=== PATIENT | female | born 1980 | race African-American/Black ===

== ENCOUNTER 2020-06-21 17:20 | Observation (INO) ==
[2020-06-21 19:38] LABS: Basophils # 0.1 10*3/uL (0.0-0.2); Basophils % 0.8 % (0.0-0.8); Hematocrit 42.7 VOL% (35.7-47.0); Hemoglobin 14.6 GM/DL (12.0-16.0); Immature Granulocytes % 0.7 %; Immature Granulocytes Absolute 0.11 #; Lymphocytes # 1.8 10*3/uL (1.4-4.0); Lymphocytes % 11.5 % (21.3-54.2); Mean Corpuscular HGB Conc 34.2 GM/DL (32-36); Mean Platelet Volume 9.7 FL (9.6-12.0); Monocytes % 4.9 % (1.7-12.7); Neutrophils % 82.1 % (38.7-73.9); Platelet Count 503 T/CUMM (130-400); Red Blood Count 5.34 MC/CUMM (3.8-5.5); Red Cell Distribution Width 13.8 % (9.3-17.3); White Blood Count 15.6 T/CUMM (4-12)
[2020-06-21 19:46] LABS: Bilirubin,Urine Small mg/dL (Negative); Blood, Urine Negative (Negative); Glucose,Urine (UA) Negative (Negative); Ketones,Urine 80 mg/dL (Negative); Mucus,Urine Many /LPF (Occasional); Nitrite,Urine Negative (Negative); Protein,Urine 100 MG/DL; RBC,Urine 3 /HPF (0-4); Squamous Epithelial Cell,Urine Many /HPF (0-10); Urine Appearance CLOUDY (Clear); Urine Color Amber (Yellow); Urine Specific Gravity 1.031 (1.001-1.035); WBC,Urine 4 /HPF (0-6)
[2020-06-21] MEDS ORDERED: SODIUM CHLORIDE 0.9% 500 ML IV STA (19:46)
[2020-06-21 20:01] LABS: Bilirubin,Total 0.6 MG/DL (0.2-1.0); Calcium 9.6 MG/DL (8.5-10.1); Osmolality,Calculated 269.1 MOS/KG (273-304); Potassium 2.8 MMOL/L (3.5-5.1); Total Protein 9.2 G/DL (6.4-8.3)
[2020-06-21] MEDS ORDERED: ONDANSETRON 4 MG/2 ML VIAL ONE (20:03)
[2020-06-21] MEDS ORDERED: POTASSIUM CHLORIDE 20 MEQ TABLET PO STA (20:25)
[2020-06-21] MEDS ORDERED: ONDANSETRON 4 MG/2 ML VIAL IV STA (20:29)
[2020-06-21] MEDS ORDERED: GLUCAGON 1 MG VIAL IM PRN (22:49)
[2020-06-21] MEDS ORDERED: DEXTROSE 50% 25 GM/50 ML VIAL IV PRN (22:49)
[2020-06-22] MEDS: SODIUM CHLORIDE 0.9% 1,000 ML IV SCH ×2 (00:05→10:05)
[2020-06-22] MEDS: PROMETHAZINE INJ 25 MG in SODIUM CHLORIDE 0.9% 50 ML IV PRN (00:05)
[2020-06-22] MEDS ORDERED: MAGNESIUM SULF RIDER 4 GM in PREMIX 1 EACH IV PRN (00:31)
[2020-06-22] MEDS ORDERED: MAGNESIUM SULF RIDER 2 GM in PREMIX 1 EACH IV PRN (00:31)
[2020-06-22] MEDS: ENOXAPARIN 40 MG/0.4 ML SYRINGE SUBCUT SCH ×2 (00:38→22:21)
[2020-06-22] MEDS: hydrALAZINE 20 MG/1 ML VIAL IV PRN ×4 (00:38→22:24)
[2020-06-22] MEDS ORDERED: PANTOPRAZOLE 40 MG VIAL IV ONE (00:45)
[2020-06-22] MEDS: POTASSIUM CHLORIDE RIDER 10 MEQ in PREMIX 1 EACH IV PRN ×12 (01:21→23:48)
[2020-06-22 06:30] LABS: Basophils # 0.1 10*3/uL (0.0-0.2); Basophils % 0.5 % (0.0-0.8); Hematocrit 40.7 VOL% (35.7-47.0); Hemoglobin 13.9 GM/DL (12.0-16.0); Immature Granulocytes % 0.7 %; Immature Granulocytes Absolute 0.13 #; Lymphocytes # 2.8 10*3/uL (1.4-4.0); Lymphocytes % 15.1 % (21.3-54.2); Mean Corpuscular HGB Conc 34.2 GM/DL (32-36); Mean Corpuscular Volume 79.8 FL (87-102); Mean Platelet Volume 10.4 FL (9.6-12.0); Monocytes % 5.9 % (1.7-12.7); Neutrophils % 77.8 % (38.7-73.9); Platelet Count 479 T/CUMM (130-400); Red Cell Distribution Width 13.7 % (9.3-17.3); White Blood Count 18.3 T/CUMM (4-12)
[2020-06-22 07:19] LABS: Alanine Aminotransferase < 9 U/L (13-56); Albumin 3.7 G/DL (3.4-5.0); Alkaline Phosphatase 107 U/L (45-117); Aspartate Amino Transferase 11 U/L (0-37); Blood Urea Nitrogen 6 MG/DL (7-18); Calcium 9.1 MG/DL (8.5-10.1); Carbon Dioxide 24 MMOL/L (21-32); Estimated Glom Filtration Rate 127 ML/MIN; Glucose 97 MG/DL (74-106); Osmolality,Calculated 267.1 MOS/KG (273-304); Sodium 135 MMOL/L (136-145); Total Protein 8.6 G/DL (6.4-8.3)
[2020-06-22 07:23] LABS: Potassium 2.5 MMOL/L (3.5-5.1)
[2020-06-22] MEDS ORDERED: lisinopriL 20 MG TABLET PO SCH (09:00)
[2020-06-22] MEDS: SODIUM CHLOR 0.9% KCL 40 MEQ 40 MEQ/1,000 ML BAG IV SCH ×2 (10:02→19:39)
[2020-06-22] MEDS: PANTOPRAZOLE 40 MG VIAL IV SCH (10:03)
[2020-06-22] MEDS: ONDANSETRON 4 MG/2 ML VIAL IV PRN ×2 (10:03→17:22)
[2020-06-22] MEDS ORDERED: MELATONIN 3 MG TABLET PO PRN (11:52)
[2020-06-22] MEDS: ACETAMINOPHEN 325 MG TABLET PO PRN ×2 (12:21→22:14)
[2020-06-22] MEDS: amLODIPine 10 MG TABLET PO SCH (14:02)
[2020-06-22] MEDS: ZALEPLON 5 MG CAPSULE PO PRN (22:45)
[2020-06-23] MEDS: PROMETHAZINE INJ 25 MG in SODIUM CHLORIDE 0.9% 50 ML IV PRN ×3 (00:46→20:47)
[2020-06-23] MEDS: POTASSIUM CHLORIDE RIDER 10 MEQ in PREMIX 1 EACH IV PRN ×2 (01:26→02:47)
[2020-06-23] MEDS: SODIUM CHLOR 0.9% KCL 40 MEQ 40 MEQ/1,000 ML BAG IV SCH ×3 (07:22→20:42)
[2020-06-23 07:29] LABS: Albumin 3.3 G/DL (3.4-5.0); Bilirubin,Total 1.4 MG/DL (0.2-1.0); Calcium 8.9 MG/DL (8.5-10.1); Osmolality,Calculated 261.5 MOS/KG (273-304); Potassium 3.1 MMOL/L (3.5-5.1); Total Protein 7.4 G/DL (6.4-8.3)
[2020-06-23 07:35] LABS: Basophils # 0.1 10*3/uL (0.0-0.2); Basophils % 0.7 % (0.0-0.8); Eosinophils # 0.1 10*3/uL (0.0-0.87); Eosinophils % 0.4 % (0.00-10.9); Hematocrit 37.9 VOL% (35.7-47.0); Immature Granulocytes % 1.4 %; Lymphocytes # 2.3 10*3/uL (1.4-4.0); Lymphocytes % 16.5 % (21.3-54.2); Mean Corpuscular HGB Conc 34.3 GM/DL (32-36); Mean Corpuscular Volume 79.8 FL (87-102); Mean Platelet Volume 10.2 FL (9.6-12.0); Platelet Count 433 T/CUMM (130-400); Red Blood Count 4.75 MC/CUMM (3.8-5.5); Red Cell Distribution Width 13.9 % (9.3-17.3)
[2020-06-23] MEDS: POTASSIUM CHLORIDE 20 MEQ TABLET PO SCH ×2 (08:17→20:44)
[2020-06-23] MEDS: carvediloL 12.5 MG TABLET PO SCH ×2 (08:17→20:31)
[2020-06-23] MEDS: lisinopriL 20 MG TABLET PO SCH (08:17)
[2020-06-23] MEDS: amLODIPine 10 MG TABLET PO SCH (08:17)
[2020-06-23] MEDS: PANTOPRAZOLE 40 MG VIAL IV SCH (08:18)
[2020-06-23 09:21] LABS: Calcium 8.7 MG/DL (8.5-10.1); Osmolality,Calculated 268.1 MOS/KG (273-304); Potassium 3.1 MMOL/L (3.5-5.1)
[2020-06-23] MEDS: ONDANSETRON 4 MG/2 ML VIAL IV PRN ×2 (10:13→16:19)
[2020-06-23] MEDS: MELATONIN 3 MG TABLET PO PRN (20:31)
[2020-06-23] MEDS: ZALEPLON 5 MG CAPSULE PO PRN (20:31)
[2020-06-23] MEDS: hydrALAZINE 20 MG/1 ML VIAL IV PRN (20:33)
[2020-06-24 04:39] LABS: Basophils # 0.1 10*3/uL (0.0-0.2); Basophils % 0.8 % (0.0-0.8); Eosinophils # 0.2 10*3/uL (0.0-0.87); Eosinophils % 1.4 % (0.00-10.9); Hematocrit 37.6 VOL% (35.7-47.0); Hemoglobin 13.1 GM/DL (12.0-16.0); Immature Granulocytes % 1.1 %; Immature Granulocytes Absolute 0.14 #; Lymphocytes # 1.9 10*3/uL (1.4-4.0); Lymphocytes % 15.8 % (21.3-54.2); Mean Corpuscular HGB Conc 34.8 GM/DL (32-36); Mean Corpuscular Volume 78.2 FL (87-102); Mean Platelet Volume 10.3 FL (9.6-12.0); Monocytes % 8.9 % (1.7-12.7); Platelet Count 396 T/CUMM (130-400); Red Blood Count 4.81 MC/CUMM (3.8-5.5); White Blood Count 12.3 T/CUMM (4-12)
[2020-06-24 05:05] LABS: Calcium 8.6 MG/DL (8.5-10.1); Osmolality,Calculated 266.1 MOS/KG (273-304); Potassium 3.9 MMOL/L (3.5-5.1)
[2020-06-24] MEDS: PROMETHAZINE INJ 25 MG in SODIUM CHLORIDE 0.9% 50 ML IV PRN ×3 (05:33→22:44)
[2020-06-24] MEDS: SODIUM CHLOR 0.9% KCL 40 MEQ 40 MEQ/1,000 ML BAG IV SCH ×3 (05:36→22:45)
[2020-06-24] MEDS: ENOXAPARIN 40 MG/0.4 ML SYRINGE SUBCUT SCH (05:38)
[2020-06-24] MEDS: PANTOPRAZOLE 40 MG VIAL IV SCH (10:16)
[2020-06-24] MEDS: ONDANSETRON 4 MG/2 ML VIAL IV PRN ×2 (10:18→17:56)
[2020-06-24] MEDS: POTASSIUM CHLORIDE 20 MEQ TABLET PO SCH ×2 (10:47→21:10)
[2020-06-24] MEDS: carvediloL 12.5 MG TABLET PO SCH ×2 (10:47→21:09)
[2020-06-24] MEDS: lisinopriL 20 MG TABLET PO SCH (10:48)
[2020-06-24] MEDS: amLODIPine 10 MG TABLET PO SCH (10:48)
[2020-06-24] MEDS: MELATONIN 3 MG TABLET PO PRN (21:09)
[2020-06-24] MEDS: ZALEPLON 5 MG CAPSULE PO PRN (21:09)
[2020-06-24] MEDS: hydrALAZINE 20 MG/1 ML VIAL IV PRN (21:10)
[2020-06-25 05:26] LABS: Basophils # 0.1 10*3/uL (0.0-0.2); Basophils % 0.7 % (0.0-0.8); Eosinophils # 0.1 10*3/uL (0.0-0.87); Hematocrit 39.7 VOL% (35.7-47.0); Hemoglobin 13.4 GM/DL (12.0-16.0); Immature Granulocytes % 1.1 %; Immature Granulocytes Absolute 0.13 #; Lymphocytes # 1.9 10*3/uL (1.4-4.0); Lymphocytes % 16.6 % (21.3-54.2); Mean Corpuscular HGB Conc 33.8 GM/DL (32-36); Mean Corpuscular Volume 80.5 FL (87-102); Mean Platelet Volume 10.3 FL (9.6-12.0); Monocytes % 9.6 % (1.7-12.7); Platelet Count 405 T/CUMM (130-400); Red Blood Count 4.93 MC/CUMM (3.8-5.5); Red Cell Distribution Width 13.9 % (9.3-17.3); White Blood Count 11.5 T/CUMM (4-12)
[2020-06-25] MEDS: PROMETHAZINE INJ 25 MG in SODIUM CHLORIDE 0.9% 50 ML IV PRN (05:47)
[2020-06-25] MEDS: ENOXAPARIN 40 MG/0.4 ML SYRINGE SUBCUT SCH (05:48)
[2020-06-25 05:54] LABS: Calcium 8.8 MG/DL (8.5-10.1); Osmolality,Calculated 268.1 MOS/KG (273-304); Potassium 3.9 MMOL/L (3.5-5.1)
[2020-06-25] MEDS: POTASSIUM CHLORIDE RIDER 10 MEQ in PREMIX 1 EACH IV PRN (06:47)
[2020-06-25] MEDS: SODIUM CHLOR 0.9% KCL 40 MEQ 40 MEQ/1,000 ML BAG IV SCH (06:50)
[2020-06-25] MEDS: carvediloL 12.5 MG TABLET PO SCH (09:48)
[2020-06-25] MEDS: lisinopriL 20 MG TABLET PO SCH (09:48)
[2020-06-25] MEDS: amLODIPine 10 MG TABLET PO SCH (09:48)
[2020-06-25] MEDS: PANTOPRAZOLE 40 MG VIAL IV SCH (09:51)
[2020-06-25] MEDS: ONDANSETRON 4 MG/2 ML VIAL IV PRN (09:59)
[2020-06-25] MEDS: POTASSIUM CHLORIDE 20 MEQ TABLET PO SCH (10:17)
[2020-06-25 12:28] VITALS: BP 133/84
== END 2020-06-25 14:20 | disposition home or self-care (01) ==
LOC: N.3E 17:20 → N.ED 17:20 → SUATTDRO 21:02 → N.3E 21:37
PROVIDERS: ADMIT Internal Medicine; ATTEND Emergency Medicine

== ENCOUNTER 2021-05-29 16:41 | Inpatient (IN) ==
[2021-05-29] MEDS ORDERED: ONDANSETRON 4 MG/2 ML VIAL IV STA (18:08)
[2021-05-29] MEDS ORDERED: SODIUM CHLORIDE 0.9% 1,000 ML IV STA ×2 (18:08→19:31)
[2021-05-29 19:03] LABS: Basophils % 0.5 % (0.0-0.8); Eosinophils % 0.1 % (0.00-10.9); Hematocrit 40.7 VOL% (35.7-47.0); Hemoglobin 13.6 GM/DL (12.0-16.0); Immature Granulocytes % 1.5 %; Immature Granulocytes Absolute 0.13 #; Lymphocytes # 2.1 10*3/uL (1.4-4.0); Mean Corpuscular HGB Conc 33.4 GM/DL (32-36); Mean Corpuscular Volume 77.7 FL (87-102); Mean Platelet Volume 8.8 FL (9.6-12.0); Monocytes % 5.7 % (1.7-12.7); Neutrophils % 68.2 % (38.7-73.9); Platelet Count 564 T/CUMM (130-400); Red Blood Count 5.24 MC/CUMM (3.8-5.5); Red Cell Distribution Width 14.6 % (9.3-17.3); White Blood Count 8.9 T/CUMM (4-12)
[2021-05-29 19:26] LABS: Alanine Aminotransferase 22 U/L (13-56); Albumin 3.8 G/DL (3.4-5.0); Alkaline Phosphatase 114 U/L (45-117); Aspartate Amino Transferase 10 U/L (0-37); Blood Urea Nitrogen 79 MG/DL (7-18); Calcium 10.7 MG/DL (8.5-10.1); Carbon Dioxide 29 MMOL/L (21-32); Estimated Glom Filtration Rate 11 ML/MIN; Glucose 146 MG/DL (74-106); Osmolality,Calculated 277.5 MOS/KG (273-304); Potassium 2.9 MMOL/L (3.5-5.1); Sodium 125 MMOL/L (136-145); Total Protein 10.2 G/DL (6.4-8.2)
[2021-05-29 19:27] LABS: Bilirubin,Urine Negative (Negative); Blood, Urine Negative (Negative); Glucose,Urine (UA) 50 mg/dL (Negative); Ketones,Urine Negative (Negative); Mucus,Urine Occasional /LPF (Occasional); Nitrite,Urine Negative (Negative); Protein,Urine 30 MG/DL; RBC,Urine 3 /HPF (0-4); Squamous Epithelial Cell,Urine Few /HPF (0-10); Urine Appearance CLOUDY (Clear); Urine Color Yellow (Yellow); Urine Specific Gravity 1.013 (1.001-1.035); Urine Urobilinogen < 2.0 EU/DL (<2.0)
[2021-05-29] MEDS ORDERED: POTASSIUM CHLORIDE 20 MEQ TABLET PO STA (19:31)
[2021-05-29] MEDS ORDERED: POTASSIUM BICARB EFFERVESCENT 20 MEQ TAB.EFF PO ONE (21:01)
[2021-05-29] MEDS ORDERED: MORPHINE 2 MG/1 ML SYRINGE IV STA ×2 (21:24→23:24)
[2021-05-29] MEDS ORDERED: ONDANSETRON 4 MG/2 ML VIAL IV ONE (21:24)
[2021-05-29] MEDS ORDERED: VANCOMYCIN INJ 1,000 MG in SODIUM CHLORIDE 0.9% 250 ML IV ONE (22:00)
[2021-05-29] MEDS ORDERED: GLUCAGON 1 MG VIAL IM PRN (23:24)
[2021-05-29] MEDS ORDERED: ACETAMINOPHEN 325 MG TABLET PO PRN (23:24)
[2021-05-29] MEDS ORDERED: DOCUSATE SODIUM 100 MG CAPSULE PO PRN (23:24)
[2021-05-29] MEDS ORDERED: ZALEPLON 5 MG CAPSULE PO PRN (23:24)
[2021-05-29] MEDS ORDERED: hydrALAZINE 20 MG/1 ML VIAL IV PRN (23:24)
[2021-05-29] MEDS ORDERED: NICOTINE 21 MG/24 HR PATCH TRANSDERM PRN (23:24)
[2021-05-29] MEDS ORDERED: guaiFENesin/DM ER 600-30 MG TABLET PO PRN (23:24)
[2021-05-29] MEDS ORDERED: diphenhydrAMINE CAP 25 MG CAPSULE PO PRN (23:24)
[2021-05-29] MEDS ORDERED: DEXTROSE 10% 250 ML BAG IV PRN (23:24)
[2021-05-30] MEDS ORDERED: POTASSIUM CHLORIDE RIDER 10 MEQ/100 ML PREMIX IV PRN (00:25)
[2021-05-30] MEDS: SODIUM CHLOR 0.9% KCL 40 MEQ 40 MEQ/1,000 ML BAG IV SCH ×3 (02:00→20:00)
[2021-05-30] MEDS: PIPERACILLIN/TAZOBACTAM 3,375 MG in SODIUM CHLORIDE 0.9% 100 ML IV SCH ×2 (02:15→16:00)
[2021-05-30] MEDS: ONDANSETRON 4 MG/2 ML VIAL IV PRN ×3 (02:49→22:37)
[2021-05-30 05:46] LABS: Basophils % 0.5 % (0.0-0.8); Eosinophils # 0.1 10*3/uL (0.0-0.87); Eosinophils % 0.6 % (0.00-10.9); Hematocrit 30.1 VOL% (35.7-47.0); Hemoglobin 10.2 GM/DL (12.0-16.0); Immature Granulocytes % 1.3 %; Immature Granulocytes Absolute 0.11 #; Lymphocytes # 2.7 10*3/uL (1.4-4.0); Lymphocytes % 30.3 % (21.3-54.2); Mean Corpuscular HGB Conc 33.9 GM/DL (32-36); Mean Corpuscular Volume 78.8 FL (87-102); Mean Platelet Volume 9.1 FL (9.6-12.0); Monocytes % 8.9 % (1.7-12.7); Neutrophils % 58.4 % (38.7-73.9); Platelet Count 494 T/CUMM (130-400); Red Blood Count 3.82 MC/CUMM (3.8-5.5); Red Cell Distribution Width 14.6 % (9.3-17.3); White Blood Count 8.8 T/CUMM (4-12)
[2021-05-30] MEDS ORDERED: VANCOMYCIN INJ 1,000 MG in SODIUM CHLORIDE 0.9% 250 ML IV PRN (06:00)
[2021-05-30 06:08] LABS: Albumin 2.9 G/DL (3.4-5.0); Bilirubin,Total 1.2 MG/DL (0.20-1.00); Osmolality,Calculated 290.4 MOS/KG (273-304); Potassium 3.4 MMOL/L (3.5-5.1); Total Protein 7.6 G/DL (6.4-8.2)
[2021-05-30] MEDS: MORPHINE 2 MG/1 ML SYRINGE IV PRN (08:22)
[2021-05-30] MEDS: HEPARIN 5,000 UNIT/1 ML VIAL SUBCUT SCH ×2 (12:54→21:19)
[2021-05-30] MEDS: PANTOPRAZOLE 40 MG TABLET PO SCH (12:55)
[2021-05-30] MEDS ORDERED: PROMETHAZINE 25 MG TABLET PO PRN (15:35)
[2021-05-30] MEDS ORDERED: oxyCODONE/ACETAMINOPHEN 5-325 MG TABLET PO PRN (15:39)
[2021-05-30] MEDS: ALPRAZolam 0.5 MG TABLET PO PRN (16:05)
[2021-05-30] MEDS ORDERED: ZALEPLON 5 MG CAPSULE PO SCH (21:00)
[2021-05-30] MEDS: prednisoLONE ACETATE 1% OPH SUSP 5 ML BOTTLE BOTH EYES SCH (22:32)
[2021-05-31] MEDS: SODIUM CHLOR 0.9% KCL 40 MEQ 40 MEQ/1,000 ML BAG IV SCH (04:05)
[2021-05-31] MEDS: PIPERACILLIN/TAZOBACTAM 3,375 MG in SODIUM CHLORIDE 0.9% 100 ML IV SCH (04:07)
[2021-05-31 06:55] LABS: Basophils % 0.6 % (0.0-0.8); Eosinophils % 0.3 % (0.00-10.9); Hematocrit 28.1 VOL% (35.7-47.0); Hemoglobin 9.2 GM/DL (12.0-16.0); Lymphocytes # 2.4 10*3/uL (1.4-4.0); Lymphocytes % 38.4 % (21.3-54.2); Mean Corpuscular HGB Conc 32.7 GM/DL (32-36); Mean Corpuscular Volume 80.5 FL (87-102); Mean Platelet Volume 9.6 FL (9.6-12.0); Monocytes % 11.8 % (1.7-12.7); Neutrophils % 47.9 % (38.7-73.9); Platelet Count 417 T/CUMM (130-400); Red Blood Count 3.49 MC/CUMM (3.8-5.5); Red Cell Distribution Width 14.7 % (9.3-17.3); White Blood Count 6.3 T/CUMM (4-12)
[2021-05-31 07:29] LABS: Calcium 8.6 MG/DL (8.5-10.1); Osmolality,Calculated 287.5 MOS/KG (273-304); Potassium 4.5 MMOL/L (3.5-5.1)
[2021-05-31 07:55] LABS: Albumin 2.5 G/DL (3.4-5.0); Bilirubin,Total 1.3 MG/DL (0.20-1.00); Calcium 8.4 MG/DL (8.5-10.1); Osmolality,Calculated 289.4 MOS/KG (273-304); Potassium 4.6 MMOL/L (3.5-5.1); Total Protein 6.9 G/DL (6.4-8.2)
[2021-05-31] MEDS: PANTOPRAZOLE 40 MG TABLET PO SCH (09:00)
[2021-05-31] MEDS: prednisoLONE ACETATE 1% OPH SUSP 5 ML BOTTLE BOTH EYES SCH (09:00)
[2021-05-31] MEDS: HEPARIN 5,000 UNIT/1 ML VIAL SUBCUT SCH (09:00)
[2021-05-31] MEDS ORDERED: VANCOMYCIN INJ 1,000 MG in SODIUM CHLORIDE 0.9% 250 ML IV ONE (09:00)
[2021-05-31] MEDS: ALPRAZolam 0.5 MG TABLET PO PRN (09:00)
[2021-05-31 11:41] VITALS: BP 100/62
[2021-05-31] MEDS: MORPHINE 2 MG/1 ML SYRINGE IV PRN (11:56)
[2021-05-31] MEDS: ONDANSETRON 4 MG/2 ML VIAL IV PRN (11:56)
[2021-05-31] MEDS ORDERED: LACTATED RINGERS 1,000 ML IV SCH (13:00)
== END 2021-05-31 15:05 | disposition home or self-care (01) | DRG 683 ==
LOC: N.ED 16:41 → N.EDINP 23:24 → N.OB 05-30 16:40
PROVIDERS: ADMIT Hospitalist; ATTEND Hospitalist

== ENCOUNTER 2021-06-01 19:14 | Observation (INO) ==
[2021-06-01] MEDS ORDERED: PANTOPRAZOLE 40 MG VIAL IV STA (20:22)
[2021-06-01] MEDS ORDERED: SODIUM CHLORIDE 0.9% 1,000 ML IV STA (20:22)
[2021-06-01] MEDS ORDERED: PROMETHAZINE 25 MG/1 ML VIAL IM STA (20:22)
[2021-06-01 21:36] LABS: Bilirubin,Urine Negative (Negative); Blood, Urine Negative (Negative); Glucose,Urine (UA) Negative (Negative); Ketones,Urine Negative (Negative); Nitrite,Urine Negative (Negative); Protein,Urine 30 MG/DL; RBC,Urine 3 /HPF (0-4); Squamous Epithelial Cell,Urine Occasional /HPF (0-10); Urine Appearance CLEAR (Clear); Urine Color Yellow (Yellow); Urine Specific Gravity 1.012 (1.001-1.035); Urine Urobilinogen < 2.0 EU/DL (<2.0)
[2021-06-01 22:03] LABS: Basophils # 0.1 10*3/uL (0.0-0.2); Basophils % 0.5 % (0.0-0.8); Eosinophils % 0.4 % (0.00-10.9); Hematocrit 26.4 VOL% (35.7-47.0); Hemoglobin 8.7 GM/DL (12.0-16.0); Immature Granulocytes % 0.5 %; Immature Granulocytes Absolute 0.05 #; Lymphocytes # 2.8 10*3/uL (1.4-4.0); Lymphocytes % 28.4 % (21.3-54.2); Mean Corpuscular Volume 79.3 FL (87-102); Mean Platelet Volume 8.6 FL (9.6-12.0); Monocytes % 7.1 % (1.7-12.7); Neutrophils % 63.1 % (38.7-73.9); Platelet Count 354 T/CUMM (130-400); Red Blood Count 3.33 MC/CUMM (3.8-5.5); Red Cell Distribution Width 14.7 % (9.3-17.3); White Blood Count 9.9 T/CUMM (4-12)
[2021-06-01] MEDS ORDERED: SODIUM CHLORIDE 0.9% 500 ML IV ONE (22:39)
[2021-06-01 23:02] LABS: Alanine Aminotransferase 22 U/L (13-56); Albumin 2.6 G/DL (3.4-5.0); Alkaline Phosphatase 77 U/L (45-117); Amylase 116 U/L (25-115); Aspartate Amino Transferase 16 U/L (0-37); Blood Urea Nitrogen 14 MG/DL (7-18); Carbon Dioxide 24 MMOL/L (21-32); Estimated Glom Filtration Rate 59 ML/MIN; Glucose 94 MG/DL (74-106); Osmolality,Calculated 279.4 MOS/KG (273-304); Potassium 3.8 MMOL/L (3.5-5.1); Sodium 140 MMOL/L (136-145); Total Protein 7.1 G/DL (6.4-8.2)
[2021-06-01] MEDS ORDERED: MAGNESIUM SULF RIDER 2 GM/50 ML PREMIX IV STA (23:15)
[2021-06-01] MEDS ORDERED: MAGNESIUM SULF RIDER 4 GM/100 ML PREMIX IV PRN (23:36)
[2021-06-01] MEDS ORDERED: POTASSIUM CHLORIDE RIDER 10 MEQ/100 ML PREMIX IV PRN (23:36)
[2021-06-01] MEDS ORDERED: MAGNESIUM SULF RIDER 2 GM/50 ML PREMIX IV PRN (23:36)
[2021-06-02] MEDS ORDERED: hydrALAZINE 20 MG/1 ML VIAL IV PRN
[2021-06-02] MEDS ORDERED: DEXT 5% NACL 0.9% KCL 20 MEQ 20 MEQ/1,000 ML BAG IV SCH
[2021-06-02] MEDS ORDERED: ZALEPLON 5 MG CAPSULE PO PRN
[2021-06-02] MEDS ORDERED: PROMETHAZINE 25 MG/1 ML VIAL IM PRN
[2021-06-02] MEDS ORDERED: NICOTINE 21 MG/24 HR PATCH TRANSDERM PRN
[2021-06-02] MEDS ORDERED: diphenhydrAMINE CAP 25 MG CAPSULE PO PRN
[2021-06-02] MEDS ORDERED: ONDANSETRON 4 MG/2 ML VIAL IV PRN
[2021-06-02] MEDS ORDERED: ACETAMINOPHEN 325 MG TABLET PO PRN
[2021-06-02] MEDS ORDERED: guaiFENesin/DM ER 600-30 MG TABLET PO PRN
[2021-06-02] MEDS ORDERED: BISACODYL 5 MG TABLET PO PRN
[2021-06-02] MEDS ORDERED: DEXTROSE 10% 250 ML BAG IV PRN
[2021-06-02] MEDS ORDERED: GLUCAGON 1 MG VIAL IM PRN
[2021-06-02 05:53] LABS: Basophils # 0.1 10*3/uL (0.0-0.2); Basophils % 0.6 % (0.0-0.8); Eosinophils # 0.1 10*3/uL (0.0-0.87); Eosinophils % 0.7 % (0.00-10.9); Hematocrit 29.1 VOL% (35.7-47.0); Hemoglobin 9.7 GM/DL (12.0-16.0); Immature Granulocytes % 0.4 %; Immature Granulocytes Absolute 0.04 #; Lymphocytes # 3.1 10*3/uL (1.4-4.0); Lymphocytes % 34.2 % (21.3-54.2); Mean Corpuscular HGB Conc 33.3 GM/DL (32-36); Mean Corpuscular Volume 80.2 FL (87-102); Mean Platelet Volume 9.3 FL (9.6-12.0); Monocytes % 6.9 % (1.7-12.7); Neutrophils % 57.2 % (38.7-73.9); Platelet Count 393 T/CUMM (130-400); Red Blood Count 3.63 MC/CUMM (3.8-5.5); Red Cell Distribution Width 14.8 % (9.3-17.3)
[2021-06-02 06:58] LABS: Calcium 8.4 MG/DL (8.5-10.1); Osmolality,Calculated 276.4 MOS/KG (273-304); Potassium 3.7 MMOL/L (3.5-5.1)
[2021-06-02] MEDS ORDERED: ALPRAZolam 0.5 MG TABLET PO PRN (07:30)
[2021-06-02] MEDS ORDERED: tiZANidine 4 MG TABLET PO PRN (07:30)
[2021-06-02] MEDS ORDERED: PROMETHAZINE 25 MG TABLET PO PRN (07:30)
[2021-06-02] MEDS ORDERED: PANTOPRAZOLE 40 MG TABLET PO SCH (09:00)
[2021-06-02] MEDS ORDERED: HEPARIN 5,000 UNIT/1 ML VIAL SUBCUT SCH (09:00)
[2021-06-02 10:19] VITALS: BP 134/100
== END 2021-06-02 10:44 | disposition home or self-care (01) ==
LOC: N.ED 19:14 → N.EDINP 19:14
PROVIDERS: ADMIT Internal Medicine; ATTEND Internal Medicine

== ENCOUNTER 2021-08-19 06:20 | Observation (INO) ==
[2021-08-19] MEDS ORDERED: PROMETHAZINE INJ 12.5 MG in SODIUM CHLORIDE 0.9% 50 ML IV STA (06:40)
[2021-08-19] MEDS ORDERED: SODIUM CHLORIDE 0.9% 1,000 ML IV STA (06:40)
[2021-08-19 07:18] LABS: Basophils # 0.1 10*3/uL (0.0-0.2); Basophils % 0.6 % (0.0-0.8); Eosinophils % 0.2 % (0.00-10.9); Hematocrit 40.7 VOL% (35.7-47.0); Immature Granulocytes % 1.1 %; Immature Granulocytes Absolute 0.17 #; Lymphocytes % 25.6 % (21.3-54.2); Mean Corpuscular HGB Conc 34.4 GM/DL (32-36); Mean Corpuscular Volume 80.1 FL (87-102); Mean Platelet Volume 9.3 FL (9.6-12.0); Monocytes % 6.5 % (1.7-12.7); Platelet Count 528 T/CUMM (130-400); Red Blood Count 5.08 MC/CUMM (3.8-5.5); Red Cell Distribution Width 14.1 % (9.3-17.3); White Blood Count 15.4 T/CUMM (4-12)
[2021-08-19] MEDS ORDERED: PROMETHAZINE 25 MG/1 ML VIAL ONE (07:22)
[2021-08-19 07:34] LABS: Bacteria,Urine Occasional /HPF (Few); Hyaline Casts,Urine 4 /LPF (0-3); Mucus,Urine Occasional /LPF (Occasional); RBC,Urine 1 /HPF (0-4); Squamous Epithelial Cell,Urine Few /HPF (0-10); Urine Appearance Slightly Cloudy (Clear); Urine Color Dark yellow (Yellow)
[2021-08-19 07:35] LABS: Bilirubin,Urine Small mg/dL (Negative); Blood, Urine Trace mg/dL (Negative); Glucose,Urine (UA) Negative (Negative); Ketones,Urine 15 mg/dL (Negative); Nitrite,Urine Negative (Negative); Protein,Urine 30 mg/dL (Negative); Urine Urobilinogen 0.2 eU/dL (<2.0)
[2021-08-19 07:41] LABS: Albumin 3.9 G/DL (3.4-5.0); Bilirubin,Total 0.6 MG/DL (0.20-1.00); Calcium 9.8 MG/DL (8.5-10.1); Osmolality,Calculated 271.1 MOS/KG (273-304); Potassium 2.7 MMOL/L (3.5-5.1); Total Protein 9.2 G/DL (6.4-8.2)
[2021-08-19] MEDS ORDERED: POTASSIUM CHLORIDE 20 MEQ TABLET PO STA (07:55)
[2021-08-19] MEDS ORDERED: MAGNESIUM SULF RIDER 1 GM/100 ML PREMIX IV STA (07:55)
[2021-08-19] MEDS ORDERED: LORazepam 2 MG/1 ML VIAL IV STA (08:08)
[2021-08-19] MEDS ORDERED: DEXAMETHASONE 4 MG/1 ML VIAL IV STA (08:08)
[2021-08-19] MEDS ORDERED: GLUCAGON 1 MG VIAL IM PRN (08:43)
[2021-08-19] MEDS ORDERED: ONDANSETRON 4 MG/2 ML VIAL IV PRN (08:43)
[2021-08-19] MEDS ORDERED: DEXTROSE 10% 25 GM/250 ML BAG IV PRN (08:43)
[2021-08-19] MEDS ORDERED: SODIUM CHLORIDE 0.9% 1,000 ML IV SCH (09:00)
[2021-08-19] MEDS: POTASSIUM CHLORIDE RIDER 10 MEQ/100 ML PREMIX IV SCH ×3 (09:04→11:48)
[2021-08-19] MEDS ORDERED: hydrALAZINE 20 MG/1 ML VIAL IV PRN (09:40)
[2021-08-19] MEDS ORDERED: LABETALOL 100 MG TABLET PO SCH (14:00)
[2021-08-19 18:50] VITALS: BP 183/114
== END 2021-08-19 15:58 | disposition home or self-care (01) ==
LOC: N.ED 06:20 → N.EDINP 06:20
PROVIDERS: ADMIT Internal Medicine Geriatric Medicine; ATTEND Internal Medicine Geriatric Medicine